=== PATIENT | male | born 1965 | race Caucasian/White ===

== ENCOUNTER 2022-02-12 09:26 | Inpatient (IN) ==
--- NOTE | 2022-02-12 09:48 | Emergency Department Note ---
History of Present Illness General Chief complaint: Laceration/Cut (Non-Suture) Stated complaint: PAIN IN L HAND, CUT Time Seen by Provider: 02/12/22 09:34 History of Present Illness Maximum Pain Intensity: 7 This 56 year old male with significant past medical history HTN presents to the ED today for evaluation of left index finger swelling and pain. Patient states about 3 weeks ago, he cut the PIP on the dorsal aspect of of the left index finger with a disc pad grinder. He states it bled a lot and he cleaned it with peroxide, and thought it was okay. He states he then bumped it on something a few days ago, noticed increased pain, swelling, and redness. He went to [place] emergency department last night, was given IV antibiotics, and was told they would like to have him admitted to be seen by orthopedics, have further imaging completed, and possibly surgery. The patient states he did not want to stay, because "the only thing they were going to do for me until the afternoon was give me antibiotics". He states he left and decided to come here today for "a second opinion". The patient denies any fever. No red streaking. He does not know what antibiotic they gave him. He is not diabetic. He states he did booster his tetanus vaccine last night. He has not seen orthopedics. He is not currently on oral antibiotics. Home Medications Medication Instructions Recorded Confirmed Type glyburide 2.5 mg tablet 2.5 mg PO QAM 02/12/22 02/12/22 History ibuprofen-diphenhydramine citrate 2 cap PO HS PRN 02/12/22 02/12/22 History 200 mg-38 mg tablet (Advil PM) lisinopril 20 mg tablet 20 mg PO QAM 02/12/22 02/12/22 History simvastatin 20 mg tablet 20 mg PO HS 02/12/22 02/12/22 History Allergies Allergy/AdvReac Type Severity Reaction Status Date / Time No Known Allergies Allergy Unverified 02/12/22 11:04 Past Med/Surg History Medical History Diabetes mellitus, type II HLD (hyperlipidemia) Hypertension Surgical History (Updated 02/12/22 @ 13:50 by Lolita Thompson PA-C) H/O rotator cuff surgery Family History (Updated 02/12/22 @ 13:50 by Lolita Thompson PA-C) Father Cancer skin cancer Other Hypertension Social History Smoking Status: Never smoker Hx Alcohol Use: Yes (Mixed drink twice a year) Hx Substance Use: No Preferred Language: Citizen Of [place] Feels Safe at Home: Yes Review of Systems A total of 10 systems reviewed and were otherwise negative Physical Exam Vital Signs Vital Signs - 24 hr 02/12/22 09:27 02/12/22 10:22 02/12/22 11:00 Temperature 36.3 C L Temperature Source Temporal Artery Scan Pulse Rate 75 Pulse Rate [Apical] 72 81 Pulse Rhythm [Apical] Regular Respiratory Rate 18 18 22 Blood Pressure 196/102 H Blood Pressure [Right Arm] 178/120 H 186/100 H Blood Pressure Mean 133 Blood Pressure Mean [Right Arm] 139 128 Blood Pressure Position Sitting Pulse Oximetry 95 93 96 Oxygen Delivery Method Room Air Room Air Room Air Sepsis Recent Fever Within 48 Hours No Sepsis New/Unexplained Change in Mental Status N/A Sepsis Action Taken by Nursing No Action Required 02/12/22 13:00 Temperature Temperature Source Pulse Rate Pulse Rate [Apical] 76 Pulse Rhythm [Apical] Respiratory Rate 22 Blood Pressure Blood Pressure [Right Arm] 154/89 H Blood Pressure Mean Blood Pressure Mean [Right Arm] 110 Blood Pressure Position Pulse Oximetry 95 Oxygen Delivery Method Room Air Sepsis Recent Fever Within 48 Hours Sepsis New/Unexplained Change in Mental Status Sepsis Action Taken by Nursing VITALS: Vitals are noted on the nurse's note and reviewed by myself. Pt. is hypertensive. He is afebrile, not tachycardic GENERAL: This is a 56 year old white male, in no acute distress, nondiaphoretic, well-developed well-nourished. SKIN: Erythema and edema surrounding the PIP of the left index finger extending proximally to cover the proximal phalanx. There is tenderness to palpation of this area. The skin was without rashes, erythema, edema, or bruising. There is no tenting of the skin. Capillary refill less than 2 seconds. HEAD: Normocephalic atraumatic. EYES: Conjunctivae without injection, sclerae without icterus. NOSE: Patent, turbinates without inflammation or discharge. No sinus tenderness. MOUTH: Mucous membranes moist. Tonsils are not enlarged. Pharynx without erythema or exudate. Uvula midline. Airway patent. Tongue does not deviate. NECK: Supple without nuchal rigidity. No lymphadenopathy. No JVD. HEART: Regular rate and rhythm without murmurs gallops or rubs. LUNGS: Clear to auscultation bilaterally without wheezes, rales or rhonchi. No retractions or accessory muscle use. ABDOMEN: Positive bowel sounds x 4. Soft, nontender, without masses or organomegaly. Oh sign negative. No guarding or rebound tenderness. MUSCULOSKELETAL: No muscle atrophy, erythema, or edema noted. Patient is unable to flex the left index finger due to the previously noted edema. There is tenderness to palpation of this area. Otherwise, full range of motion without joint tenderness in all extremities. Normal gait. Strength 5/5 throughout. NEURO: Patient was alert and oriented to person place and time. No focal neurological deficits. Course Course The patient was seen and evaluated as above. An order was placed for continuous cardiac monitoring. The monitor shows a normal sinus rhythm at a rate of 81 bpm. IV access obtained, labs drawn. Imaging performed and reviewed by myself and radiologist as noted. Labs reviewed by myself. Attempted to obtain records from [place] emergency department. I discussed the findings with the patient at bedside. Pt. again notes he does not have a history of diabetes. He notes he has been told by his PCP last month and the ED last night that his blood sugar was "good." Recommended admission due to hyperglycemia, new onset diabetes, obvious finger infection. I discussed the case with the corporate services manager. I discussed the case with [facility]. I spoke with Dr. Herman. He recommends IV antibiotics, placing the patient in an Ortho-Glass splint, splinting the hand, elevating the extremity and managing for soft tissue inflammation. He indicated they would be by to see the patient this afternoon [facility] Spoke with Lolita Thompson PA-C. She did agree to see the patient for admission. At this time, reviewed patient's medication list. Pharmacy had pulled glyburide from home med list. I questioned patient regarding this medication. Pt. now states he is on this medication and does have a history of Diabetes. The patient is questioning why he needs the splint. I advised him of my conversation with orthopedics. The patient was agreeable with the splint. I was able to obtain medical records from [facility] emergency department at this time. Upon review, the patient was given 2000 mg IV vancom ycin as well as 2000 mg IV ceftriaxone yesterday in the emergency department. I did consult with the ED pharmacist regarding vancomycin dosing, as it does not appear that the patient had been given a full loading dose. We did agree on vancomycin dosing to be initiated here at this time. Patient given 2,250 mg vancomycin here in the ED. [facility] management and care of this patient. Administered Medications Vancomycin HCl 2,250 mg/ (Sodium Chloride) 545 mls @ 200 mls/hr IV NOW ONE Stop: 02/12/22 15:42 Last Admin: 02/12/22 13:59 Dose: 200 mls/hr Documented by: [id number] Discontinued Medications Ceftriaxone Sodium (Rocephin) 2,000 mg in 70 mls @ 140 mls/hr IV NOW STA Stop: 02/12/22 12:28 Last Infusion: 02/12/22 14:07 Dose: 0 mls/hr Documented by: [id number] Admin: 02/12/22 12:50 Dose: 140 mls/hr Documented by: [id number] Sodium Chloride (Nss 1000ml) 1,000 mls @ 999 mls/hr IV .Q1H1M ONE Stop: 02/12/22 13:00 Last Infusion: 02/12/22 14:07 Dose: 0 mls/hr Documented by: [id number] Admin: 02/12/22 12:49 Dose: 999 mls/hr Documented by: [id number] Insulin Human Regular (Novolin-R Insulin Per Unit Charge) 10 units SC NOW STA Stop: 02/12/22 12:52 Last Admin: 02/12/22 13:51 Dose: Not Given Documented by: [id number] Insulin Human Regular (Novolin-R Insulin Per Unit Charge) 10 units IV NOW STA Stop: 02/12/22 13:23 Last Admin: 02/12/22 13:55 Dose: 10 units Documented by: [id number] Cosigned by: [id number] Medical Decision Making Differential Diagnosis Cellulitis, abscess, tenosynovitis, MRSA infection, DVT, necrotizing fasciitis, dermatitis, drug eruption, allergic reaction, as well as other pathologies. Medical Records Attestation: I reviewed the patient's medical records. [facility] emergency department records from last night were obt ained and reviewed. Home Medications Current Medication List: was personally reviewed by me Laboratory Data No leukocytosis, anemia, thrombocytopenia. Renal, hepatic function, and electrolytes without significant abnormality. Blood glucose significantly elevated at 428. Inflammatory markers elevated, ESR 28, CRP 4.32. Lactic acid 1.6. Procalcitonin negative Result diagrams: 02/12/22 10:05 02/12/22 10:05 Lab Results 02/12/22 02/12/22 02/12/22 Range/Units 10:05 10:05 10:05 WBC 7.45 (4.8-10.8) K/uL RBC 5.34 (4.7-6.1) M/uL Hgb 16.1 (14.0-18.0) g/dL Hct 44.7 (42-52) % MCV 83.7 (80-100) fL MCH 30.1 (25-34) pg MCHC 36.0 (32-36) g/dL RDW Std Deviation 37.5 (36.4-46.3) fL RDW Coeff of Kanwal 12.4 (11.5-14.5) % Plt Count 180 (130-400) K/uL MPV 9.9 (7.4-10.4) fL Immature Gran % (Auto) 0.3 % Neut % (Auto) 64.8 % Lymph % (Auto) 25.1 % Arroyo % (Auto) 6.7 % Eos % (Auto) 2.7 % Baso % (Auto) 0.4 % Neut # (Auto) 4.83 (1.4-6.5) K/uL Lymph # (Auto) 1.87 (1.2-3.4) K/uL Arroyo # (Auto) 0.50 (0.11-0.59) K/uL Eos # (Auto) 0.20 (0-0.5) K/uL Baso # (Auto) 0.03 (0-0.2) K/uL Immature Gran # (Auto) 0.02 (0.00-0.02) K/uL ESR 28 H (0-20) mm/hr Sodium 132 L (136-145) mmol/L Potassium 4.2 (3.5-5.1) mmol/L Chloride 100 (98-107) mmol/L Carbon Dioxide 23 (21-32) mmol/L Anion Gap 9 (3-11) BUN 18 (6-23) mg/dl Creatinine 1.01 (0.6-1.4) mg/dl Est Cr Clr Drug Dosing 93.5 ml/min Est GFR ( Amer) 95.3 ml/min Est GFR (Non-Af Amer) 82.2 ml/min BUN/Creatinine Ratio 17.8 (10-20) Glucose 428 H* (70-99(Fasting)) mg/dl POC Glucose (70-99) mg/dl Lactate (0.4-2.0) mmol/L Calcium 9.4 (8.5-10.1) mg/dl Total Bilirubin 0.8 (0.2-1.0) mg/dl AST 19 (13-39) U/L ALT 26 (7-52) U/L Alkaline Phosphatase 91 (34-104) U/L C-Reactive Protein 4.32 H (0-0.5) mg/dl Total Protein 7.4 (6.0-8.3) gm/dl Albumin 4.3 (3.4-5.0) gm/dl Globulin 3.1 (2.5-4.0) gm/dl Albumin/Globulin Ratio 1.4 (0.9-2) Procalcitonin (0-0.5) ng/ml SARS-CoV-2, RNA, NAAT (NEGATIVE) 02/12/22 02/12/22 02/12/22 Range/Units 10:05 10:05 11:54 WBC (4.8-10.8) K/uL RBC (4.7-6.1) M/uL Hgb (14.0-18.0) g/dL Hct (42-52) % MCV (80-100) fL MCH (25-34) pg MCHC (32-36) g/dL RDW Std Deviation (36.4-46.3) fL RDW Coeff of Kanwal (11.5-14.5) % Plt Count (130-400) K/uL MPV (7.4-10.4) fL Immature Gran % (Auto) % Neut % (Auto) % Lymph % (Auto) % Arroyo % (Auto) % Eos % (Auto) % Baso % (Auto) % Neut # (Auto) (1.4-6.5) K/uL Lymph # (Auto) (1.2-3.4) K/uL Arroyo # (Auto) (0.11-0.59) K/uL Eos # (Auto) (0-0.5) K/uL Baso # (Auto) (0-0.2) K/uL Immature Gran # (Auto) (0.00-0.02) K/uL ESR (0-20) mm/hr Sodium (136-145) mmol/L Potassium (3.5-5.1) mmol/L Chloride (98-107) mmol/L Carbon Dioxide (21-32) mmol/L Anion Gap (3-11) BUN (6-23) mg/dl Creatinine (0.6-1.4) mg/dl Est Cr Clr Drug Dosing ml/min Est GFR ( Amer) ml/min Est GFR (Non-Af Amer) ml/min BUN/Creatinine Ratio (10-20) Glucose (70-99(Fasting)) mg/dl POC Glucose 317 H* (70-99) mg/dl Lactate 1.6 (0.4-2.0) mmol/L Calcium (8.5-10.1) mg/dl Total Bilirubin (0.2-1.0) mg/dl AST (13-39) U/L ALT (7-52) U/L Alkaline Phosphatase (34-104) U/L C-Reactive Protein (0-0.5) mg/dl Total Protein (6.0-8.3) gm/dl Albumin (3.4-5.0) gm/dl Globulin (2.5-4.0) gm/dl Albumin/Globulin Ratio (0.9-2) Procalcitonin < 0.05 (0-0.5) ng/ml SARS-CoV-2, RNA, NAAT (NEGATIVE) 02/12/22 Range/Units 11:55 WBC (4.8-10.8) K/uL RBC (4.7-6.1) M/uL Hgb (14.0-18.0) g/dL Hct (42-52) % MCV (80-100) fL MCH (25-34) pg MCHC (32-36) g/dL RDW Std Deviation (36.4-46.3) fL RDW Coeff of Kanwal (11.5-14.5) % Plt Count (130-400) K/uL MPV (7.4-10.4) fL Immature Gran % (Auto) % Neut % (Auto) % Lymph % (Auto) % Arroyo % (Auto) % Eos % (Auto) % Baso % (Auto) % Neut # (Auto) (1.4-6.5) K/uL Lymph # (Auto) (1.2-3.4) K/uL Arroyo # (Auto) (0.11-0.59) K/uL Eos # (Auto) (0-0.5) K/uL Baso # (Auto) (0-0.2) K/uL Immature Gran # (Auto) (0.00-0.02) K/uL ESR (0-20) mm/hr Sodium (136-145) mmol/L Potassium (3.5-5.1) mmol/L Chloride (98-107) mmol/L Carbon Dioxide (21-32) mmol/L Anion Gap (3-11) BUN (6-23) mg/dl Creatinine (0.6-1.4) mg/dl Est Cr Clr Drug Dosing ml/min Est GFR ( Amer) ml/min Est GFR (Non-Af Amer) ml/min BUN/Creatinine Ratio (10-20) Glucose (70-99(Fasting)) mg/dl POC Glucose (70-99) mg/dl Lactate (0.4-2.0) mmol/L Calcium (8.5-10.1) mg/dl Total Bilirubin (0.2-1.0) mg/dl AST (13-39) U/L ALT (7-52) U/L Alkaline Phosphatase (34-104) U/L C-Reactive Protein (0-0.5) mg/dl Total Protein (6.0-8.3) gm/dl Albumin (3.4-5.0) gm/dl Globulin (2.5-4.0) gm/dl Albumin/Globulin Ratio (0.9-2) Procalcitonin (0-0.5) ng/ml SARS-CoV-2, RNA, NAAT NEGATIVE (NEGATIVE) Imaging Data Radiologist's Impression: Hand X-Ray 02/12/22 09:40 XR hand LT min 3V routine CLINICAL HISTORY: pain, swelling, redness, PIP wound. Left finger and hand swelling. COMPARISON STUDY: None. FINDINGS: No fracture or dislocation within the left hand. 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 Soft tissue swelling within the left index finger most pronounced proximally. No radiopaque foreign bodies. No evidence for osteomyelitis. IMPRESSION: Soft tissue swelling within the left index finger. No underlying bony abnormality. ACT 112: Negative or not required by law. Electronically signed by: Dario Torres M.D. 02/12/2022 10:23 AM Blood Pressure Blood Pressure Findings: Elevated blood pressure MDM Narrative This 56-year-old male patient presents to the emergency department today for evaluation of left index finger pain, swelling, and redness. The patient does appear to have an infection of the proximal aspect of the left index finger. Patient's stable tenosynovitis. Examination is difficult due to the diffuse swelling in the area of the digit, causing a difficult for the patient to move the entire digit. Unclear tenosynovitis versus cellulitis. The patient does have uncontrolled type 2 diabetes. Inflammatory markers are elevated. Given the findings and the patient's history, I do recommend inpatient treatment for IV antibiotics, orthopedic consult. The patient was started on IV vancomycin and Rocephin. Please see hospitalist and orthopedics documentation regarding ongoing management and care of this patient. The chart was completed utilizing [employer] Speech voice recognition software. Grammatical errors, random word insertions, pronoun errors, and incomplete sentences are an occasional consequence of this system due to software limitations, ambient noise, and hardware issues. Any formal questions or concerns about the content, text, or information contained within the body of this dictation should be directly addressed to the provider for clarification. Impression & Plan Cellulitis of finger of left hand, Hyperglycemia due to type 2 diabetes mellitus Discharge Plan Visit Data Chief Complaint: Laceration/Cut (Non-Suture) Stated Complaint: PAIN IN L HAND, CUT ED Provider: Mildred Tate ED Midlevel Provider: Brittany Hamilton Discharge Problem: Cellulitis of finger of left hand, Hyperglycemia due to type 2 diabetes mellitus Patient Disposition: Admitted As Inpatient Forms Stand Alone Forms: [facility] [place] Prescriptions Prescriptions: No Action glyburide 2.5 mg tablet 2.5 mg PO QAM RF: 0 lisinopril 20 mg tablet 20 mg PO QAM RF: 0 simvastatin 20 mg tablet 20 mg PO HS RF: 0 Advil PM 200-38 mg Tablet 2 cap PO HS PRN (Reason: Pain) RF: 0 Referrals Referrals: PCP,NO [Physician] -
--- NOTE | 2022-02-12 10:24 | XRay Report ---
XR hand LT min 3V routine CLINICAL HISTORY: pain, swelling, redness, PIP wound. Left finger and hand swelling. COMPARISON STUDY: None. FINDINGS: No fracture or dislocation within the left hand. There is mild osteoarthritis within the DI P and PIP joints. Soft tissue swelling within the left index finger most pronounced proximally. No ra diopaque foreign bodies. No evidence for osteomyelitis. IMPRESSION: Soft tissue swelling within the left index finger. No underlying bony abnormality. ACT 112: Negative or not required by law. Electronically signed by: Dario Torres M.D. 02/12/2022 10:23 AM
[2022-02-12 10:26] LABS: Basophils # (auto) 0.03 K/uL (0-0.2); Basophils % (auto) 0.4 %; Eosinophils % (auto) 2.7 %; Hematocrit (blood only) 44.7 % (42-52); Hemoglobin 16.1 g/dL (14.0-18.0); Immature Granulocytes # (auto) 0.02 K/uL (0.00-0.02); Immature Granulocytes % (auto) 0.3 %; Lymphocytes # (auto) 1.87 K/uL (1.2-3.4); Lymphocytes % (auto) 25.1 %; Mean Corpuscular Hemoglobin 30.1 pg (25-34); Mean Corpuscular Volume 83.7 fL (80-100); Mean Platelet Volume 9.9 fL (7.4-10.4); Monocytes % (auto) 6.7 %; Neutrophils # (auto) 4.83 K/uL (1.4-6.5); Neutrophils % (auto) 64.8 %; Platelet Count 180 K/uL (130-400); RDW Coefficient of Variation 12.4 % (11.5-14.5); RDW Standard Deviation 37.5 fL (36.4-46.3); Red Blood Count 5.34 M/uL (4.7-6.1); White Blood Count 7.45 K/uL (4.8-10.8)
[2022-02-12 11:16] LABS: Albumin Globulin Ratio 1.4 (0.9-2); Albumin Level 4.3 gm/dl (3.4-5.0); BUN Creatinine Ratio 17.8 (10-20); Bilirubin,Total 0.8 mg/dl (0.2-1.0); C Reactive Protein 4.32 mg/dl (0-0.5); Calcium 9.4 mg/dl (8.5-10.1); Creatinine Clr Calc Pharmacy 93.5 ml/min; Est GFR (African American) 95.3 ml/min; Est GFR (Non-African American) 82.2 ml/min; Globulin 3.1 gm/dl (2.5-4.0); Potassium 4.2 mmol/L (3.5-5.1); Total Protein 7.4 gm/dl (6.0-8.3)
[2022-02-12] MEDS ORDERED: cefTRIAXone SODIUM 2,000 MG/70 ML BAG IV STA (11:59)
[2022-02-12] MEDS ORDERED: SODIUM CHLORIDE 0.9% 1000ML 1,000 ML IV ONE (12:00)
[2022-02-12] MEDS ORDERED: NovoLIN-R INSULIN PER UNIT CHARGE SC STA (12:51)
--- NOTE | 2022-02-12 12:51 | History & Physical Report ---
Date of Service February 12, 2022 Assessment & Plan (1) Cellulitis of finger of left hand: Plan: LEFT INDEX FINGER Patient is 56-year-old male with PMH HTN, HLD, DM II presents to ER with complaint of left finger swelling, erythema and edema x 1 week. 3 weeks ago laceration from a grinder set up operator gear tool to dorsal aspect of L index finger over PIP joint. 1 week ago tried home aspiration with needle reporting purulent drainage since. Was in [place] ER yesterday and received Rocephin, Vancomycin and admission was recommended however patient denied Today in ER patient afebrile, patient hypertensive other vital stable. No leukocytosis. ESR: 28, CRP: 4.3, lactate and procalcitonin WNL Left hand x-ray: No visible foreign bodies, no osteomyelitis noted R/O tenosynovitis In ER given L NSS, Rocephin, vancomycin Blood cultures pending Zosyn, vancomycin Gentle IVF Tylenol, oxycodone as needed pain Ortho consult Will hold on further imaging pending ortho recommendations NPO midnight CBC, BMP in a.m. (2) Hyperglycemia due to type 2 diabetes mellitus: Plan: In ER glucose 428 down to 317 UA pending Hold home glyburide. Patient reports was on metformin however after several days of taking developed arthralgias so was discontinued Basal bolus insulin per protocol Glycemic pharmacy consult A1c in a.m. (3) Hypertension: Plan: Patient initially quite hypertensive in ER with BP 196/102 down to 154/89 Continue home lisinopril Add amlodipine Hydralazine p.o. as needed HTN Monitor (4) HLD (hyperlipidemia): Plan: Continue simvastatin DVT Prophylaxis SCDs Follows with Dr Gagnon in [place], [place] for routine care Pt was seen and care coordinated with Dr Deng. See addendum History of Present Illness Chief Complaint: Left finger swelling Primary Care Provider: Alvarez Gagnon MD Patient is 56-year-old male with PMH HTN, HLD, DM II presents to ER with complaint of left finger swelling. He reports 3 weeks ago he cut his dorsal aspect of left index finger over PIP joint with a grinder set up operator gear tool causing laceration. He reports he cleansed the area with soap and water and then peroxide. He states that after injury we was able to flex and extend the digit. Reports approximately one week ago bumped finger and since has noted increased swelling and redness and discomfort. He states that stuck a needle into finger and yellow pus drained out. He reports continued yellow drainage from finger. Has been unable to fully flex the left index finger. Reports was seen at [place] ER yesterday. ER records reviewed and was given Rocephin and vancomycin. It was recommended he be admitted to hospital and see orthopedics however patient denied and presented here today. Denies known history of MRSA. Reports had AM me ds today. Denies fever/chills, diaphoresis, N/V/D/C, PEREZ, dizziness, syncope, vision changes, neck pain, CP, SOB, orthopnea, palpitations, cough, sore throat, choking, otalgia, rhinorrhea, abdominal pain, paresthesias, weakness, extremity weakness, extremity edema, other skin rashes, urinary symptoms. Allergies Allergy/AdvReac Type Severity Reaction Status Date / Time No Known Allergies Allergy Unverified 02/12/22 11:04 Home Medications Medication Instructions Recorded Confirmed Type glyburide 2.5 mg tablet 2.5 mg PO QAM 02/12/22 02/12/22 History ibuprofen-diphenhydramine citrate 2 cap PO HS PRN 02/12/22 02/12/22 History 200 mg-38 mg tablet (Advil PM) lisinopril 20 mg tablet 20 mg PO QAM 02/12/22 02/12/22 History simvastatin 20 mg tablet 20 mg PO HS 02/12/22 02/12/22 History Past Med/Surg History Medical History Diabetes mellitus, type II HLD (hyperlipidemia) Hypertension Surgical History H/O rotator cuff surgery Family History Father Cancer skin cancer Other Hypertension Social History Smoking Status: Never smoker Hx Alcohol Use: Yes (Mixed drink twice a year) Hx Substance Use: No Preferred Language: Belgian Feels Safe at Home: Yes Review of Systems Review of Systems: All systems reviewed & are unremarkable except as noted in HPI & below Physical Exam Physical Exam: General: no distress, obese Head: normocephalic, atraumatic Eyes: conjunctiva non-injected, anicteric ENT: normal inspection external ears, nose, mucous membranes moist Neck: supple, trachea midline Lungs: clear, no respiratory distress, no wheezing/rhonchi/rales CV: RRR, no murmur, no pretibial edema Abd: normal BS, soft, non-tender Ext: no cyanosis, no calf tenderness; LUE: +splint to left wrist to fingers unable to fully examine Neuro: A&O x 3, no focal deficits noted, normal affect Skin: warm, dry Results & Data Results & Data ([facility]) Vital Signs (Past 12 Hours) Vital Signs Temp Pulse Pulse Resp BP BP Pulse Ox 02/12/22 11:00 81 22 186/100 H 96 02/12/22 10:22 72 18 178/120 H 93 02/12/22 09:27 36.3 C L 75 18 196/102 H 95 Laboratory Results Short CBC 02/12/22 Range/Units 10:05 WBC 7.45 (4.8-10.8) K/uL Hgb 16.1 (14.0-18.0) g/dL Hct 44.7 (42-52) % Plt Count 180 (130-400) K/uL BMP 02/12/22 10:05 Sodium 132 L Potassium 4.2 Chloride 100 Carbon Dioxide 23 BUN 18 Creatinine 1.01 Glucose 428 H* Calcium 9.4 Liver Function 02/12/22 Range/Units 10:05 Total Bilirubin 0.8 (0.2-1.0) mg/dl AST 19 (13-39) U/L ALT 26 (7-52) U/L Alkaline Phosphatase 91 (34-104) U/L Albumin 4.3 (3.4-5.0) gm/dl Diagnostic Findings Hand X-Ray 02/12/22 09:40 XR hand LT min 3V routine CLINICAL HISTORY: pain, swelling, redness, PIP wound. Left finger and hand swelling. COMPARISON STUDY: None. FINDINGS: No fracture or dislocation within the left hand. 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 Soft tissue swelling within the left index finger most pronounced proximally. No radiopaque foreign bodies. No evidence for osteomyelitis. IMPRESSION: Soft tissue swelling within the left index finger. No underlying bony abnormality. ACT 112: Negative or not required by law. Electronically signed by: Dario Torres M.D. 02/12/2022 10:23 AM Supervising Physician Co-Signing Physician Notes Patient is a 56-year-old male with history of diabetes mellitus, hypertension and other medical problems presents with history of left finger swelling associated with pain, discharge. Patient admits to have a cut off his finger 3 weeks ago and about 1 week ago had trauma to the same area resulting in wo rsening pain, swelling and redness. Patient was evaluated in [place] ER yesterday and was advised to be admitted for IV antibiotics and orthopedic evaluation but patient refused. Please review HPI for complete details of presentation. On exam patient is obese, no apparent distress, normocephalic atraumatic, EOMI, normal breath sounds, clear to auscultation, S1-S2, no murmur, no pedal edema, abdomen soft, nontender, normal bowel sounds, alert, awake, oriented, grossly no focal deficits, left and in splint. Blood work and imaging studies reviewed. Normal procalcitonin. CRP 4.32. Blood cultures pending. Patient is admitted for management of left hand cellulitis. Cannot rule out abscess. Started on broad-spectrum antibiotics Vanco, Zosyn. Gentle IV fluids. Orthopedics consulted. Pain control. Wound care. Agree with starting on insulin for diabetes management. Update HbA1c. Agree with adding amlodipine at continue lisinopril, hydralazine as needed to help with hypertensive urgency. May need echo eventually to evaluate left ventricular hypertrophy. I personally reviewed the record. Patient is interviewed and examined at bedside. Patient's care is coordinated with Lolita Thompson PA-C. Please refer to the documentation above for details of patient's presentation and for discussion of other issues. (1) Hyperglycemia due to type 2 diabetes mellitus Diabetes mellitus buttermaker insulin use: without buttermaker use Qualified Code(s): E11.65 - Type 2 diabetes mellitus with hyperglycemia
[2022-02-12] MEDS ORDERED: VANCOMYCIN HCL 2,250 MG in SODIUM CHLORIDE 0.9% 500 ML IV ONE (12:59)
[2022-02-12] MEDS ORDERED: VANCOMYCIN CONSULT ACTIVE PRN ×2 (12:59→20:22)
[2022-02-12] MEDS ORDERED: NovoLIN-R INSULIN PER UNIT CHARGE IV STA (13:22)
[2022-02-12] MEDS ORDERED: CONSULT PHARMACY STA (13:40)
[2022-02-12] MEDS ORDERED: GLUCAGON FOR INJ 1 MG VIAL SQ PRN (16:16)
[2022-02-12] MEDS ORDERED: ONDANSETRON INJ 2 MG/ML 2 ML VIAL IV PRN (16:16)
[2022-02-12] MEDS ORDERED: GLUCOSE 10 TABS/TUBE PO PRN (16:16)
[2022-02-12] MEDS ORDERED: GLUCOSE 40% GEL 15 GM TUBE PO PRN (16:16)
[2022-02-12] MEDS ORDERED: SODIUM CHLORIDE 0.9% 1000ML 1,000 ML IV SCH (16:16)
[2022-02-12] MEDS ORDERED: hydrALAZINE 10 MG TAB PO PRN (16:16)
[2022-02-12] MEDS ORDERED: DEXTROSE 50% 50 ML SYRINGE IV PRN (16:16)
[2022-02-12] MEDS ORDERED: PHARMACY GLYCEMIC MGMT CONSULT PRN (16:16)
[2022-02-12] MEDS ORDERED: CARBOHYDRATES FOR HYPOGLYCEMIA PO PRN (16:16)
[2022-02-12] MEDS ORDERED: amLODIPine BESYLATE 5 MG TAB PO SCH (16:16)
[2022-02-12] MEDS ORDERED: POLYETHYLENE (MIRALAX) 17 GM PACK PO PRN (16:16)
[2022-02-12] MEDS ORDERED: oxyCODONE HCL IR 5 MG TAB (IMMEDIATE RELEASE) PO PRN (16:16)
[2022-02-12] MEDS ORDERED: INSULIN GLARGINE SOLOSTAR 100 UNITS/ML 3 ML PEN SC ONE (17:53)
[2022-02-12] MEDS ORDERED: PIPERACILLIN/TAZOBACTAM 4.5 GM in DEXTROSE 5% 100 ML IV ONE (18:00)
[2022-02-12] MEDS: INSULIN ASPART PER UNIT SC SCH ×2 (19:07→20:15)
[2022-02-12] MEDS ORDERED: PIPERACILL/TAZOBAC CONSULT ACTIVE PRN (20:21)
--- NOTE | 2022-02-12 20:40 | Orthopedic Consultation ---
Date of Service February 12, 2022 Assessment & Plan (1) Septic arthritis of interphalangeal joint of finger of left hand: (2) Cellulitis of finger of left hand: Presentation consistent with subacute septic arthrosis of the left index finger proximal interphalangeal joint with surrounding mild cellulitis. I recommended to the patient that he undergo incision, irrigation debridement to expedite and give his best chance of eradicating the infection. Alternatives to surgery would be prolonged IV antibiotics, but I am concerned about the degree of purulence, joint contracture, and chronicity here. Recommend surgery first thing in AM. He should be n.p.o. at midnight. We discussed the risks include, but are not limited to, persistent infection, need for repeat or revision surgery, chronic pain syndromes, arthrofibrosis of the IP joint, nerve or vessel injury, and complications related anesthesia. He asked appropriate questions, demonstrated good understanding, and wanted to proceed with surgery. Informed consent was documented in the emergency room tonight. N.p.o. at midnight Continue empiric parenteral antibiotics., Will obtain deep cultures tomorrow Fingers provisionally splinted with the hand for soft tissue rest. This can be removed for exams and adjusted by the patient. Anticipate 1-2 days inpatient stay until transition to oral antibiotic regimen. Appreciate hospitalist management of his hypertension and hyperglycemia which will expedite his recovery. History of Present Illness Reason for Consultation: Left index finger infection Requesting Physician: . 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 The patient noted that he cut it open on a hot metal car operator about 3 weeks ago. He said he was aggressive about washing it with soap and water treating with peroxide. He said it was doing well up until about 3 to 4 days ago when he bumped it. He since had increased pain and loss of motion and that finger. He says at some point in the process he was draining pus after sterilizing a needle and lacerating it. Is been draining pus consistently over last 2 days, prompting a visit to [place] [facility]. They offered admission and orthopedic consultation the next day for potential surgery. He left due to delays in care and wanting a second opinion. He denies any fevers or chills. Reports got lots of projects to work on and does not want to stay long. No prior history of finger injuries or infections. He was admitted to the hospitalist team due to hyperglycemia and hypertension. Allergies Allergy/AdvReac Type Severity Reaction Status Date / Time No Known Allergies Allergy Unverified 02/12/22 11:04 Home Medications Medication Instructions Recorded Confirmed Type glyburide 2.5 mg tablet 2.5 mg PO QAM 02/12/22 02/12/22 History ibuprofen-diphenhydramine citrate 2 cap PO HS PRN 02/12/22 02/12/22 History 200 mg-38 mg tablet (Advil PM) lisinopril 20 mg tablet 20 mg PO QAM 02/12/22 02/12/22 History simvastatin 20 mg tablet 20 mg PO HS 02/12/22 02/12/22 History Past Med/Surg History Medical History Diabetes mellitus, type II HLD (hyperlipidemia) Hypertension Surgical History H/O rotator cuff surgery Family History Father Cancer skin cancer Other Hypertension Social History Smoking Status: Never smoker Hx Alcohol Use: Yes (Mixed drink twice a year) Hx Substance Use: No Preferred Language: Serbian Facility Planner Required: Yes Current Living Situation: Spouse Feels Safe at Home: Yes Safety Concerns: Feels Safe At This Time Review of Systems All systems reviewed & are unremarkable except as noted in HPI & below. Physical Exam Left hand: There is isolated swelling and erythema circumferentially to the index finger proximal to phalangeal joint. There is a punctate wound on the dorsal radial surface of the PIP joint. It is crusted purulence. There is no expressible drainage with palpation, but there is exquisite tenderness. Very minimal motion due to pain to the PIP joint. DIP motion seems to be preserved. MP motion seems to be preserved and pain-free. No tenderness along the flexor tendon sheath. No antecubital or axillary lymphadenopathy. Constitutional well developed and well nourished; no acute distress and not intoxicated appearing ENMT external ear and nose normal, oropharynx normal Respiratory normal respiratory effort; no respiratory distress Cardiovascular Extremities: normal capillary refill; no edema Skin no rashes, warm and dry Psychiatric A+Ox3, euthymic affect Results & Data Results & Data Laboratory Results H & H 02/12/22 Range/Units 10:05 Hgb 16.1 (14.0-18.0) g/dL Hct 44.7 (42-52) % Laboratory Tests 02/12/22 02/12/22 10:05 10:05 ESR 28 H Glucose 428 H* C-Reactive Protein 4.32 H Diagnostic Findings Radiographs of left ankle AP lateral oblique views. These demonstrate focal soft tissue swelling to the index finger PIP joint with diffuse tapering throughout the digit. No foreign bodies. No advanced arthrosis of the PIP or DIP joints. PG Care Time/CCT Total # of Minutes Spent Total Time Spent with Patient: Total time spent is greater than 50% in coordination of care (as documented) at patient's floor/unit and/or counseling patient: Coding Level of Care Code 95010 Inpt Consult Level 4 (56 - DECISION FOR SURGERY) Diagnoses Septic arthritis of interphalangeal joint of finger of left hand M00.9 Cellulitis of finger of left hand L03.012
[2022-02-12] MEDS: SIMVASTATIN 20 MG TAB PO SCH (21:00)
[2022-02-12 22:21] LABS: Appearance Urine Clear (Clear); Bilirubin Urine Negative (Negative); Blood Urine Negative (Negative); Color Urine Yellow; Glucose Urine UA 3+ (Negative); Ketones Urine Negative (Negative); Leukocyte Esterase Urine Negative (Negative); Nitrite Urine Negative (Negative); Protein Urine Negative (Negative); Specific Gravity Urine 1.022 (1.000-1.030); Urobilinogen Urine Negative (Negative); pH Urine 5.5 (4.5-7.5)
[2022-02-12] MEDS: ACETAMINOPHEN 325 MG TAB PO PRN (22:43)
[2022-02-12] MEDS: PIPERACILLIN/TAZOBACTAM 4.5 GM in DEXTROSE 5% 100 ML IV SCH (23:03)
[2022-02-13] MEDS: VANCOMYCIN HCL 1,250 MG in SODIUM CHLORIDE 0.9% 250 ML IV SCH ×2 (03:00→15:52)
[2022-02-13] MEDS ORDERED: INSULIN ASPART PER UNIT SC ONE (03:00)
[2022-02-13] MEDS ORDERED: INSULIN GLARGINE SOLOSTAR 100 UNITS/ML 3 ML PEN SC ONE (08:00)
--- NOTE | 2022-02-13 08:16 | Anesthesiology Consultation ---
Date of Service February 13, 2022 Assessment & Plan (1) Encounter for pre-operative examination: Chart Review Chart Review: Acceptable Risk for Surgery History Surgery Operation Date: 02/13/22 10:30 Proposed Procedures p Incision and Drainage Left Index Finger(Left) - Modesto Herman MD Height/Weight Height: 5 ft 7 in Weight: 107.757 kg Allergies Allergy/AdvReac Type Severity Reaction Status Date / Time No Known Allergies Allergy Unverified 02/12/22 11:04 Medications Home Medications Medication Instructions Recorded Confirmed Last Taken glyburide 2.5 mg tablet 2.5 mg PO QAM 02/12/22 02/12/22 02/12/22 ibuprofen-diphenhydramine citrate 2 cap PO HS PRN 02/12/22 02/12/22 02/11/22 22:00 200 mg-38 mg tablet (Advil PM) lisinopril 20 mg tablet 20 mg PO QAM 02/12/22 02/12/22 02/12/22 simvastatin 20 mg tablet 20 mg PO HS 02/12/22 02/12/22 02/11/22 Active Medications Generic Name Dose Route Start Last Admin Trade Name Freq PRN Reason Stop Dose Admin Acetaminophen 650 mg 02/12/22 16:16 02/12/22 22:43 Acetaminophen 325 Mg Tab PO 03/14/22 16:15 650 mg Q4H PRN Administration Pain or Fever Amlodipine Besylate 2.5 mg 02/12/22 16:16 02/12/22 19:07 Amlodipine Besylate 5 Mg Tab PO 03/14/22 16:15 2.5 mg QAM CHERELLE Administration Piperacillin Sod/Tazobactam 120 mls @ 30 mls/hr 02/13/22 00:00 02/13/22 03:03 Sod 4.5 gm/ Dextrose IV 02/20/22 00:00 Infused Q8H CHERELLE Infusion Protocol Vancomycin HCl 1,250 mg/ 275 mls @ 200 mls/hr 02/13/22 02:00 02/13/22 04:23 Sodium Chloride IV 02/20/22 01:59 Infused Q12H CHERELLE Infusion Insulin Aspart 0 units 02/12/22 17:00 02/12/22 20:15 Insulin Aspart Per Unit SC 03/14/22 16:59 11 units ACHS CHERELLE Administration Simvastatin 20 mg 02/12/22 21:00 02/12/22 21:00 Simvastatin 20 Mg Tab PO 03/14/22 20:59 20 mg HS CHERELLE Administration Past Medical History Medical History Diabetes mellitus, type II HLD (hyperlipidemia) Hypertension Past Family History Family History Father Cancer skin cancer Other Hypertension Past Surgical History Surgical History H/O rotator cuff surgery Social History Smoking Status: Never smoker Hx Alcohol Use: Yes (Mixed drink twice a year) Hx Substance Use: No Physical Exam Vital Signs Last Vital Signs Temp 36.6 C 02/13/22 07:25 Pulse 59 L 02/13/22 07:28 Resp 18 02/13/22 07:25 BP 178/100 H 02/13/22 07:25 Pulse Ox 93 02/13/22 07:25 Testing Laboratory Results 02/12/22 10:05 02/12/22 10:05 Urine Color Yellow 02/12/22 Unknown Urine Appearance Clear (Clear) 02/12/22 Unknown Urine pH 5.5 (4.5-7.5) 02/12/22 Unknown Ur Specific [place] 1.022 (1.000-1.030) 02/12/22 Unknown Urine Protein Negative (Negative) 02/12/22 Unknown Urine Glucose (UA) 3+ (Negative) H 02/12/22 Unknown Urine Ketones Negative (Negative) 02/12/22 Unknown Urine Nitrite Negative (Negative) 02/12/22 Unknown Ur Leukocyte Esterase Negative (Negative) 02/12/22 Unknown 02/13/22 02/13/22 07:23 03:34 POC Glucose 256 H 320 H*
[2022-02-13] MEDS: lisinopril 20 MG TAB PO SCH (08:24)
[2022-02-13] MEDS: INSULIN ASPART PER UNIT SC SCH ×4 (08:32→20:51)
[2022-02-13] MEDS: PIPERACILLIN/TAZOBACTAM 4.5 GM in DEXTROSE 5% 100 ML IV SCH ×3 (08:33→23:11)
[2022-02-13] MEDS ORDERED: PHARMACY GLYCEMIC MGMT CONSULT PRN (08:51)
[2022-02-13 09:42] LABS: Hematocrit (blood only) 45.2 % (42-52); Hemoglobin 15.9 g/dL (14.0-18.0); Mean Corpuscular Hemoglobin 29.7 pg (25-34); Mean Corpuscular Hgb Conc 35.2 g/dL (32-36); Mean Corpuscular Volume 84.3 fL (80-100); Mean Platelet Volume 9.7 fL (7.4-10.4); Platelet Count 173 K/uL (130-400); RDW Coefficient of Variation 12.5 % (11.5-14.5); Red Blood Count 5.36 M/uL (4.7-6.1); White Blood Count 6.58 K/uL (4.8-10.8)
[2022-02-13] MEDS ORDERED: PROPOFOL IV EMULSION 10 MG/ML 20 ML VIAL IV ONE ×3 (09:47→09:48)
[2022-02-13] MEDS ORDERED: MIDAZOLAM HCL 1 MG/ML 2ML VIAL ONE (09:48)
[2022-02-13] MEDS ORDERED: LIDOCAINE 2% 2 ML VIAL/AMP(20MG/ML) INFIL ONE (09:48)
[2022-02-13] MEDS ORDERED: fentaNYL citrate 100 MCG/2 ML VIAL ONE ×2 (09:48→10:56)
[2022-02-13 10:06] LABS: BUN Creatinine Ratio 15.5 (10-20); Calcium 9.1 mg/dl (8.5-10.1); Creatinine Clr Calc Pharmacy 98.4 ml/min; Est GFR (Non-African American) 86.3 ml/min
[2022-02-13] MEDS ORDERED: ATROPINE SULFATE 0.1 MG/ML 10ML SYR IV PRN (10:14)
[2022-02-13] MEDS ORDERED: LABETALOL HCL IV 5 MG/ML 20ML IV PRN (10:14)
[2022-02-13] MEDS ORDERED: KETOROLAC 30 MG/ML VIAL IV PRN (10:14)
[2022-02-13] MEDS ORDERED: fentaNYL citrate 100 MCG/2 ML VIAL IV PRN (10:14)
[2022-02-13] MEDS ORDERED: ONDANSETRON INJ 2 MG/ML 2 ML VIAL IV PRN (10:14)
--- NOTE | 2022-02-13 10:25 | History & Physical Bridge Note ---
Date of Service February 13, 2022 History & Physical Bridge Note I have examined the patient, reviewed the History & Physical and in the interval since the performance of the History & Physical I have noted the following changes of clinical significance: no changes noted. Patient is aware of COVID-19 risks. Patient is asymptomatic for COVID-19. Patient has been tested for COVID-19 - [NEGATIVE]. Improved erythema with abx and elevation. Remains with septic effusion L IF PIPJ.
[2022-02-13 10:32] LABS: Estimated Average Glucose 286 mg/dl; Hemoglobin A1C 11.6 % (4.5-5.6)
[2022-02-13] MEDS ORDERED: BUPIVACAINE 0.5 % 5 MG/1 ML MPF 30ML VIAL ONE (11:05)
--- NOTE | 2022-02-13 11:15 | Pharmacy Report ---
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 Pertinent microbiologic data includes: blood cultures x 2 show no growth at 24 hours. I&D scheduled for today. Plan Vancomycin * Loading dose: 2250 mg IV x 1 * Maintenance dose: 1250 mg IV every 12 hours * Regimen is predicted to achieve target AUC/SARAH of 400-600 mg/L.hr * Will obtain vancomycin level if patient will remain on therapy beyond tomorrow Zosyn * 4.5 g IV q8h appropriate based on BMI and renal function Pharmacy will continue to follow and will adjust dose/frequency as necessary. Thank you. Pharmacy has transitioned to AUC monitoring for vancomycin. AUC/SARAH is the preferred PK/PD target and is associated with decreased risk of nephrotoxicity compared to traditional trough targets.
--- NOTE | 2022-02-13 12:03 | Operative Report ---
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 There was metallic debris and particulate matter down into the joint with extensive synovitis. Thorough sharp debridement was carried out and 3 L of high flow irrigation was performed, with an Angiocath used to get to the deep portions of the joint. Deep articular culture was taken. Specimens Swab culture Drains Single half Randy drain into the superficial wound bed. Anesthesia Type General Complications none Disposition Accompanied Patient To Recovery: No Disposition: Recovery Room Indications 56-year-old male who sustained a full-thickness wound to the dorsal radial aspect of his left index finger PIP joint about 3 weeks ago from a metallurgical specialist, presented with a septic arthrosis to the ED. He was admitted for prophylactic antibiotics. I recommended irrigation debridement due to the deep violation of his joint. We discussed the risks and benefits in detail, as outlined in my consult note. Informed consent was obtained. Description of Procedure On the day of surgery, the patient was greeted in the preoperative holding area. The informed consent was reviewed and confirmed by myself and the patient. The patient identified the surgical site and was marked by me. The patient was then turned over to anesthesia. He was taken to the operating room and transferred onto the OR table. A hand table was attached. Anesthesia was induced and the airway was secured. A nonsterile tourniquet is placed on the forearm. We began by using chlorhexidine scrub brushes to thoroughly clean the hand and distal forearm below the nonsterile tourniquet. There was significant mount of grime and dirt stuck to previous adhesive material in the index finger. This was all cleaned off. The hand was then prepped using Betadine paint and sterilely draped. Surgical timeout was called by the circulating nurse, and verified by all present. Antibiotics have been infused on schedule, and equipment is available and functional. We initiated the procedure by exsanguinating the distal extremities and Esmarch bandage, and the tourniquet was inflated to 250 mmHg for a total of 36 minutes. The traumatic incision was about 8 mm and it was extended on either side for a midaxillary approach on the radial side of the index finger. Subcutaneous dissection was carried out sharply. Minimal Bovie electrocautery was used for hemostasis. The traumatic tissue violation was explored. This tracked all the way to the joint. It was held open and a swab culture was taken deep into the joint recesses. The extensor العراقي violation was extended. There was significant amount of particulate metallic debris throughout the traumatic wound bed. There was extensive purulent looking synovitis in the in the dorsal joint capsule. This was all debrided sharply using knife, tenotomy scissors, curettes, and small rongeur. Once clean margins were established, we began thorough 3 L irrigation using cystoscopy tubing and a 14-gauge Angiocath to washout the recesses of the joint. Once a clean wound was established, I loosely reapproximated the joint capsule and extensor العراقي with 3 [id number] sutures using 40 antibacterial Monocryl suture. 4-0 nylon was used approximate the midportion of the wound. Half strip of [place] drain was laid through the wound bed subcutaneously for drainage. The remainder the wound was approximate using mattress sutures of 4-0 nylon. The wound was dressed with sterile Xeroform, sterile gauze around the [place] drain, and contained by sterile web roll. Dressing was contained by 1 inch Coban with mila taping to the long finger forced relative tissue mobilization. The patient tolerated the procedure well, was extubated in the operating without complication, and transferred to recovery area in stable condition. Disposition: The patient remain inpatient for least 24 hours of antibiotics. We will track the cultures, and transition to oral antibiotics with assistance with the hospitalist team. He will need to follow-up as an outpatient for suture removal in about 10 to 14 days. We will perform a wound check tomorrow and likely pull the Randy drain from the wound bed. I attest to the content of the Intraoperative Record and any orders documented therein. Any exceptions are noted below.
[2022-02-13] MEDS ORDERED: ONDANSETRON INJ 2 MG/ML 2 ML VIAL ONE (12:14)
[2022-02-13] MEDS ORDERED: PHENYLEPHRINE 100MCG/ML 5ML SYR ONE (12:15)
[2022-02-13] MEDS: amLODIPine BESYLATE 5 MG TAB PO SCH (13:01)
[2022-02-13] MEDS ORDERED: IBUPROFEN 600 MG TAB PO PRN (14:42)
[2022-02-13] MEDS ORDERED: HYDROmorphone INJ 0.5 MG/0.5 ML SYR IV PRN ×2 (14:42)
[2022-02-13] MEDS ORDERED: oxyCODONE HCL IR 5 MG TAB (IMMEDIATE RELEASE) PO PRN ×2 (14:42)
[2022-02-13] MEDS ORDERED: diphenhydrAMINE Capsule 25 MG CAP PO PRN (14:42)
[2022-02-13] MEDS ORDERED: NALOXONE HCL 0.4 MG/1 ML VIAL/CARP IV PRN (14:42)
--- NOTE | 2022-02-13 15:17 | Hospitalist Progress Note ---
Date of Service February 13, 2022 Assessment & Plan (1) Cellulitis of finger of left hand: Plan: per admitting service notes with addendum: LEFT INDEX FINGER Patient is 56-year-old male with PMH HTN, HLD, DM II presents to ER with complaint of left finger swelling, erythema and edema x 1 week. 3 weeks ago laceration from a sample tester grinder to dorsal aspect of L index finger over PIP joint. 1 week ago tried home aspiration with needle reporting purulent drainage since. Was in [place] ER yesterday and received Rocephin, Vancomycin and admission was recommended however patient denied Today in ER patient afebrile, patient hypertensive other vital stable. No leukocytosis. ESR: 28, CRP: 4.3, lactate and procalcitonin WNL Left hand x-ray: No visible foreign bodies, no osteomyelitis noted R/O tenosynovitis In ER given L NSS, Rocephin, vancomycin Blood cultures pending Zosyn, vancomycin Gentle IVF Tylenol, oxycodone as needed pain Ortho consult Will hold on further imaging pending ortho recommendations NPO midnight CBC, BMP in a.m. 02/14 stable overall afebrile awaiting surgery blood cultures: pending drainage culture: pending continue Vancomycin and Zosyn Day 2 (2) Hyperglycemia due to type 2 diabetes mellitus: Plan: In ER glucose 428 down to 317 UA pending Hold home glyburide. Patient reports was on metformin however after several days of taking developed arthralgias so was discontinued Basal bolus insulin per protocol Glycemic pharmacy consult A1c 11 will order glycemic control consulte DM educator ISS (3) Hypertension: Plan: Patient initially quite hypertensive in ER with BP 196/102 down to 154/89 Continue home lisinopril BP still elevated Added amlodipine 5mg po daily for better BP control Hydralazine p.o. as needed HTN Monitor (4) HLD (hyperlipidemia): Plan: Continue simvastatin DVT Prophylaxis SCDs plan of care discussed with patient in detail and at length all questions answered he is understanding, agreeable, comfortable with the plan of care Admission and Anticipated Discharge Date Admission Date: February 12, 2022 Subjective ff up for finger cellulitis, etc seen resting in bed, sitting up not in distress states he feels ok overall still has pain on the index finger no fever/chills, nausea/vomiting, chest pain, dyspnea, headache, etc no other symptoms awaiting surgery Review of Systems Review of Systems: all noted and negative except for above Physical Exam Physical Exam: General- oriented x 3, not in distress, speaks in sentences with no effort or accessory muscle use Head- atraumatic Eyes- PERRL, EOMI, anicteric ENT- oropharynx clear Neck- supple, no JVD, no adenopathy, no thyromegaly; carotids +2/2, no bruits appreciated Lungs- clear to auscultation bilaterally, no rales/wheezes Heart- normal rate, regular rhythm; no murmur, no gallop, no rub appreciated Abdomen- normal bowel sounds, nondistended, soft, nontender, no masses or hepatosplenomegaly Extremities- no pretibial edema, no calf tenderness; peripheral pulses intact L index finger: mild edema on the joint, no active drainage no hand edema no wrist edema, or forearm edema Neuro- alert, oriented x 3; CN 2-12 grossly intact; motor 5/5 bilaterally;sensation 100% on all extremities; no other gross focal neurologic deficits Skin- warm & dry Results & Data Results & Data ([facility]) Vital Signs (Past 12 Hours) Vital Signs Temp Pulse Pulse Resp BP Pulse Ox 02/13/22 13:01 36.4 C L 72 18 167/98 H 95 02/13/22 12:45 36.9 C 74 20 160/90 H 95 02/13/22 12:35 78 21 156/103 H 92 02/13/22 12:25 76 20 133/85 93 02/13/22 12:15 63 17 135/78 95 02/13/22 12:06 36.5 C 63 20 133/89 95 02/13/22 07:28 59 L 02/13/22 07:25 36.6 C 61 18 178/100 H 93 02/13/22 04:15 36.6 C 70 16 168/90 H 92 all noted and reviewed including below (1) Hyperglycemia due to type 2 diabetes mellitus Diabetes mellitus detention insulin use: without detention use Qualified Code(s): E11.65 - Type 2 diabetes mellitus with hyperglycemia
--- NOTE | 2022-02-13 17:27 | Anesthesiology Progress Note ---
Date of Service February 13, 2022 Anesthesia Post Procedure Vital Signs Vital Signs: Temp Pulse Pulse Resp BP Pulse Ox 02/13/22 15:33 36.3 C L 72 18 162/82 H 92 02/13/22 13:01 36.4 C L 72 18 167/98 H 95 02/13/22 12:45 36.9 C 74 20 160/90 H 95 02/13/22 12:35 78 21 156/103 H 92 02/13/22 12:25 76 20 133/85 93 02/13/22 12:15 63 17 135/78 95 02/13/22 12:06 36.5 C 63 20 133/89 95 02/13/22 07:28 59 L 02/13/22 07:25 36.6 C 61 18 178/100 H 93 02/13/22 04:15 36.6 C 70 16 168/90 H 92 02/13/22 00:15 37.0 C 79 16 165/97 H 93 02/12/22 22:29 78 02/12/22 21:15 36.9 C 78 18 179/102 H 97 02/12/22 21:13 80 Pain Intensity Left Hand: Pain Intensity: 5 Transfer of Care Handoff Completed per policy Notes Mental Status: alert / awake / arousable Patient Amnestic to Procedure: Yes Nausea / Vomiting: adequately controlled Pain: adequately controlled Airway Patency, RR, SpO2: stable & adequate BP & HR: stable & adequate Hydration State: stable & adequate Anesthetic Complications: no major complications apparent
[2022-02-13] MEDS: SIMVASTATIN 20 MG TAB PO SCH (20:06)
[2022-02-13] MEDS: ACETAMINOPHEN 325 MG TAB PO PRN (23:16)
[2022-02-14] MEDS: VANCOMYCIN HCL 1,250 MG in SODIUM CHLORIDE 0.9% 250 ML IV SCH ×2 (03:18→13:51)
[2022-02-14 07:19] LABS: Basophils # (auto) 0.03 K/uL (0-0.2); Basophils % (auto) 0.3 %; Eosinophils # (auto) 0.14 K/uL (0-0.5); Eosinophils % (auto) 1.5 %; Hematocrit (blood only) 43.5 % (42-52); Immature Granulocytes # (auto) 0.02 K/uL (0.00-0.02); Immature Granulocytes % (auto) 0.2 %; Lymphocytes # (auto) 1.91 K/uL (1.2-3.4); Lymphocytes % (auto) 20.7 %; Mean Corpuscular Hemoglobin 29.2 pg (25-34); Mean Corpuscular Hgb Conc 34.5 g/dL (32-36); Mean Corpuscular Volume 84.6 fL (80-100); Mean Platelet Volume 9.5 fL (7.4-10.4); Monocytes # (auto) 0.54 K/uL (0.11-0.59); Monocytes % (auto) 5.8 %; Neutrophils % (auto) 71.5 %; Platelet Count 176 K/uL (130-400); RDW Coefficient of Variation 12.7 % (11.5-14.5); RDW Standard Deviation 39.1 fL (36.4-46.3); Red Blood Count 5.14 M/uL (4.7-6.1); White Blood Count 9.24 K/uL (4.8-10.8)
[2022-02-14 07:53] LABS: BUN Creatinine Ratio 16.5 (10-20); Calcium 8.8 mg/dl (8.5-10.1); Est GFR (Non-African American) 80.3 ml/min; Potassium 4.2 mmol/L (3.5-5.1)
[2022-02-14] MEDS: MULTIVITAMIN TAB PO SCH (08:35)
[2022-02-14] MEDS: amLODIPine BESYLATE 5 MG TAB PO SCH (08:35)
[2022-02-14] MEDS: lisinopril 20 MG TAB PO SCH (08:35)
[2022-02-14] MEDS: PIPERACILLIN/TAZOBACTAM 4.5 GM in DEXTROSE 5% 100 ML IV SCH ×2 (08:36→16:19)
[2022-02-14] MEDS: INSULIN ASPART PER UNIT SC SCH ×4 (08:46→22:08)
[2022-02-14] MEDS: INSULIN GLARGINE SOLOSTAR 100 UNITS/ML 3 ML PEN SC SCH (08:46)
--- NOTE | 2022-02-14 09:27 | Hospitalist Progress Note ---
Date of Service February 14, 2022 Assessment & Plan (1) Cellulitis of finger of left hand: Plan: per admitting service notes with addendum: LEFT INDEX FINGER, septic arthritis, cellulitis Patient is 56-year-old male with PMH HTN, HLD, DM II presents to ER with complaint of left finger swelling, erythema and edema x 1 week. 3 weeks ago laceration from a precision lens grinder apprentice to dorsal aspect of L index finger over PIP joint. 1 week ago tried home aspiration with needle reporting purulent drainage since. Was in [place] ER yesterday and received Rocephin, Vancomycin and admission was recommended however patient denied Today in ER patient afebrile, patient hypertensive other vital stable. No leukocytosis. ESR: 28, CRP: 4.3, lactate and procalcitonin WNL Left hand x-ray: No visible foreign bodies, no osteomyelitis noted R/O tenosynovitis In ER given L NSS, Rocephin, vancomycin Blood cultures pending Zosyn, vancomycin Gentle IVF Tylenol, oxycodone as needed pain Ortho consult Will hold on further imaging pending ortho recommendations NPO midnight CBC, BMP in a.m. 02/14 stable overall afebrile Status post incision and drainage 02/[address] Modesto Lee blood cultures: pending drainage culture: pending continue Vancomycin and Zosyn Day 3 (2) Hyperglycemia due to type 2 diabetes mellitus: Plan: In ER glucose 428 down to 317 UA pending Hold home glyburide. Patient reports was on metformin however after several days of taking developed arthralgias so was discontinued Basal bolus insulin per protocol Glycemic pharmacy consult A1c 11 02/14 BSG 236 Insulin Lantus 50 units daily ordered Monitor BSG's (3) Hypertension: Plan: Patient initially quite hypertensive in ER with BP 196/102 down to 154/89 Continue home lisinopril BP still elevated Added amlodipine 5mg po daily for better BP control Hydralazine p.o. as needed HTN Monitor 02/14 blood pressure improving Monitor closely (4) HLD (hyperlipidemia): Plan: Continue simvastatin DVT Prophylaxis SCDs plan of care discussed with patient in detail and at length all questions answered he is understanding, agreeable, comfortable with the plan of care Admission and Anticipated Discharge Date Admission Date: February 12, 2022 Subjective Follow-up for left index finger septic arthritis PIP joint, cellulitis, etc. Seen resting in bed, comfortable, not in distress In good spirits States left hand/finger pain resolved Denies any pain today No fevers or chills No headache, chest pain, shortness of breath, palpitations, dizziness No other symptoms Review of Systems Review of Systems: all noted and negative except for above Physical Exam Physical Exam: General- oriented x 3, not in distress, speaks in sentences with no effort or accessory muscle use Eyes- anicteric Neck- no JVD Lungs- clear breath sounds bilaterally, no rales/wheezes Heart- normal rate, regular rhythm; no murmurs Abdomen- normal bowel sounds, nondistended, soft, nontender Extremities- no pretibial edema, no calf tenderness Neuro- alert, oriented x 3; no gross focal neurologic deficits Skin- warm & dry Results & Data Results & Data ([facility]) Vital Signs (Past 12 Hours) Vital Signs Temp Pulse Pulse Resp BP Pulse Ox 02/14/22 07:17 65 02/14/22 06:46 36.6 C 75 16 150/84 H 94 02/14/22 02:26 36.9 C 79 18 141/73 H 93 02/13/22 23:15 37 C 93 H 18 155/74 H 92 02/13/22 22:20 89 (1) Hyperglycemia due to type 2 diabetes mellitus Diabetes mellitus skilled nursing insulin use: without superintendent marine oil terminal use Qualified Code(s): E11.65 - Type 2 diabetes mellitus with hyperglycemia
--- NOTE | 2022-02-14 10:29 | Pharmacy Report ---
Pharmacy Glycemic Short Note 2 - Date of Service February 14, 2022 - Glycemic Short BSG Results (Last 24 hours): 02/13/22 02/13/22 02/13/22 12:09 16:31 20:29 Glucose POC Glucose 201 H 261 H 290 H 02/14/22 02/14/22 06:44 07:20 Glucose 228 H POC Glucose 236 H OUTPATIENT ANTIDIABETIC REGIMEN: * Glyburide 2.5mg PO daily * pt reports that he has been taking 5mg daily * HbA1c: 11.6% (02/13/22) ASSESSMENT: * Mr Lyndsay is a 56yo diabetic M admitted with L index finger cellulitis. * Pt's BSGs are uncontrolled at baseline (as indicated by A1c 11.6%). Pt does not have insurance, which limits outpt options. Also question pt compliance. * He was NPO yesterday for I&D of finger in OR. Diet was resumed post-op. * Pt was initiated on SQ basal/bolus insulin on admission. BSGs have been elevated thus far. * Aggressive increases in Lantus and Novolog today in an attempt to gain control over BSGs. Would like to see tight glycemic control in the setting of infection to promote wound healing and discourage worsening of infection. * Pt is receiving IV vancomycin and zosyn for SSTI. * Will continue to follow and adjust as indicated until BSGs are stable. PLAN FOR INPATIENT GLYCEMIC CONTROL: * Hold outpatient oral diabetes medications * Basal insulin * Lantus 50 units SQ daily * Bolus insulin * NovoLog per scale ACHS or Q6hrs while NPO * Goal Range: Low 120 mg/dL - High 160 mg/dL * Correction Factor: 12 mg/dL/unit * Nutritional / Prandial insulin per carb ratio of 1 unit per 4 grams CHO consumed
--- NOTE | 2022-02-14 12:17 | Orthopedic Progress Note ---
Date of Service February 14, 2022 Assessment & Plan (1) Septic arthritis of interphalangeal joint of finger of left hand: (2) Cellulitis of finger of left hand: Making good progress on postop day 1 from left index finger incision, irrigation and debridement. Obvious gross contamination and purulent synovitis within the PIP joint. -Continue empiric parenteral antibiotics and await for speciation on the culture. Gram stain with rare GPC's. -With targeted therapy from culture and 72 hours of parenteral therapy, is likely can convert to an oral agent as early as tomorrow for discharge. -Daily dressing change or as needed. The absorbent foam border dressing works well. -I instructed him that he can be range of motion as tolerated to the MP joint and do gentle assisted motion to the PIP joint, as tolerated. -Continue ice and elevation for pain control. -We will do another wound check tomorrow morning. Dispo: Ready for discharge as early as tomorrow if oral antibiotic can be established. Subjective Reports minimal pain, managed with Tylenol. No issues with IV antibiotics. Appetite okay. Review of Systems All systems reviewed & are unremarkable except as noted in HPI & below. Physical Exam Comfortable and cooperative. Dressing clean and dry Left hand: The dressing was taken down for exam. The wound is well approximated. I slipped out the Randy drain and had minimal sanguinous thick drainage. Guarded PIP joint motion, as expected. Actively ranges his MP joint. Site was dressed with absorbent foam dressing. Constitutional WD/WN, vitals as above no acute distress and not intoxicated appearing Respiratory normal respiratory effort; no labored breathing Cardiovascular Extremities: normal capillary refill Results & Data Results & Data Laboratory Results . H & H 02/12/22 02/13/22 02/14/22 Range/Units 10:05 09:15 06:44 Hgb 16.1 15.9 15.0 (14.0-18.0) g/dL Hct 44.7 45.2 43.5 (42-52) % Microbiology 02/12/22 10:10 Aerobic Blood Culture - Preliminary Blood No growth in Aerobic bottle after 48 hours. Anaerobic Blood Culture - Preliminary No growth in Anaerobic bottle after 48 hours. 02/12/22 10:05 Aerobic Blood Culture - Preliminary Blood No growth in Aerobic bottle after 48 hours. Anaerobic Blood Culture - Preliminary No growth in Anaerobic bottle after 48 hours. 02/13/22 11:15 Gram Stain - Final Finger,Left Index rare GPC's Diagnostic Findings PG Care Time/CCT Total # of Minutes Spent Total Time Spent with Patient: Total time spent is greater than 50% in coordination of care (as documented) at patient's floor/unit and/or counseling patient: Coding Level of Care Code 31312 Post Operative Follow-Up Diagnoses Septic arthritis of interphalangeal joint of finger of left hand M00.9 Cellulitis of finger of left hand L03.012
--- NOTE | 2022-02-14 13:28 | Electrocardiogram Report ---
Test Reason : Blood Pressure : / mmHG Vent. Rate : 070 BPM Atrial Rate : 070 BPM P-R Int : 168 ms QRS Dur : 102 ms QT Int : 394 ms P-R-T Axes : 044 018 -03 degrees QTc Int : 425 ms Normal sinus rhythm Normal ECG No previous ECGs available Confirmed by Fausto Wright ([id number]) on 02/14/2022 1:28:37 PM Referred By: REFERRED SELF Confirmed By:Fausto Wright
[2022-02-14] MEDS ORDERED: VANCOMYCIN TROUGH ONE (13:30)
--- NOTE | 2022-02-14 14:11 | Pharmacy Report ---
Pharmacy PK ABX Note - Date of Service February 14, 2022 - Assessment and Plan Assessment 56 year old M receiving empiric vancomycin and Zosyn for treatment of left index finger cellulitis/septic arthritis following trauma (laceration due to metal mold dresser). Pertinent microbiologic data includes: blood cultures x 2 show no growth at 48 hours. POD #1 left finger I&D. Plan Vancomycin * Vanco trough obtained at 1318 today resulted at 9.8 * Regimen is predicted to achieve target AUC/SARAH of 400-600 mg/L.hr, however will slightly increase dose today to 1500 mg IV q12h for increased probability of target achievement * Will obtain follow-up vanco level as needed Zosyn * 4.5 g IV q8h appropriate based on BMI and renal function Pharmacy will continue to follow and will adjust dose/frequency as necessary. Thank you. Pharmacy has transitioned to AUC monitoring for vancomycin. AUC/SARAH is the preferred PK/PD target and is associated with decreased risk of nephrotoxicity compared to traditional trough targets.
[2022-02-14] MEDS: ACETAMINOPHEN 325 MG TAB PO PRN (15:23)
[2022-02-14] MEDS ORDERED: VANCOMYCIN HCL 1,500 MG in SODIUM CHLORIDE 0.9% 500 ML IV SCH (22:00)
[2022-02-14] MEDS: SIMVASTATIN 20 MG TAB PO SCH (22:09)
[2022-02-15] MEDS: PIPERACILLIN/TAZOBACTAM 4.5 GM in DEXTROSE 5% 100 ML IV SCH (01:26)
[2022-02-15 05:41] LABS: Basophils # (auto) 0.04 K/uL (0-0.2); Basophils % (auto) 0.5 %; Eosinophils # (auto) 0.16 K/uL (0-0.5); Eosinophils % (auto) 1.9 %; Hematocrit (blood only) 45.3 % (42-52); Hemoglobin 15.9 g/dL (14.0-18.0); Immature Granulocytes # (auto) 0.03 K/uL (0.00-0.02); Immature Granulocytes % (auto) 0.4 %; Lymphocytes # (auto) 2.12 K/uL (1.2-3.4); Lymphocytes % (auto) 25.6 %; Mean Corpuscular Hemoglobin 29.3 pg (25-34); Mean Corpuscular Hgb Conc 35.1 g/dL (32-36); Mean Corpuscular Volume 83.4 fL (80-100); Mean Platelet Volume 9.3 fL (7.4-10.4); Monocytes # (auto) 0.55 K/uL (0.11-0.59); Monocytes % (auto) 6.6 %; Neutrophils # (auto) 5.38 K/uL (1.4-6.5); Platelet Count 184 K/uL (130-400); RDW Coefficient of Variation 12.6 % (11.5-14.5); RDW Standard Deviation 37.9 fL (36.4-46.3); Red Blood Count 5.43 M/uL (4.7-6.1); White Blood Count 8.28 K/uL (4.8-10.8)
[2022-02-15 06:05] LABS: BUN Creatinine Ratio 16.5 (10-20); Calcium 9.1 mg/dl (8.5-10.1); Est GFR (Non-African American) 80.3 ml/min; Potassium 3.8 mmol/L (3.5-5.1)
[2022-02-15] MEDS ORDERED: AMOXICILLIN/CLAVULANATE 875 MG TAB PO SCH (08:00)
[2022-02-15] MEDS: INSULIN GLARGINE SOLOSTAR 100 UNITS/ML 3 ML PEN SC SCH (08:18)
[2022-02-15] MEDS: INSULIN ASPART PER UNIT SC SCH ×2 (08:19→12:19)
[2022-02-15] MEDS: MULTIVITAMIN TAB PO SCH (08:22)
[2022-02-15] MEDS: amLODIPine BESYLATE 5 MG TAB PO SCH (08:22)
[2022-02-15] MEDS: lisinopril 20 MG TAB PO SCH (08:22)
[2022-02-15] MEDS ORDERED: ADVANCED PROBIOTIC 1250 MG CAPSULE PO SCH (09:00)
--- NOTE | 2022-02-15 11:49 | Hospitalist Progress Note ---
Date of Service February 15, 2022 Assessment & Plan (1) Cellulitis of finger of left hand: Plan: per admitting service notes with addendum: LEFT INDEX FINGER, septic arthritis, cellulitis Patient is 56-year-old male with PMH HTN, HLD, DM II presents to ER with complaint of left finger swelling, erythema and edema x 1 week. 3 weeks ago laceration from a beef grinder to dorsal aspect of L index finger over PIP joint. 1 week ago tried home aspiration with needle reporting purulent drainage since. Was in [place] ER yesterday and received Rocephin, Vancomycin and admission was recommended however patient denied 02/15 stable overall afebrile Status post incision and drainage 02/[address] Modesto Lee blood cultures: pending drainage culture: Group B strep sensitive to penicillin given Vancomycin and Zosyn x 3 day transition to Augmentin BID x 7 days ff up with Ortho in 1 week (2) Hyperglycemia due to type 2 diabetes mellitus: Plan: In ER glucose 428 down to 317 UA pending Hold home glyburide. Patient reports was on metformin however after several days of taking developed arthralgias so was discontinued Basal bolus insulin per protocol Glycemic pharmacy consult A1c 11 02/16 DM educator, Pharmacist consulted discharge plan: Tersiba U-200 30 units in AM continue Glyburide 5mg po daily scheduled to ff up with PCP this week, strongly advised patient to ff up closely with PCP (3) Hypertension: Plan: Patient initially quite hypertensive in ER with BP 196/102 down to 154/89 Continue home lisinopril BP still elevated Added amlodipine 5mg po daily for better BP control Hydralazine p.o. as needed HTN Monitor 02/14 blood pressure improving continue Amlodipine 5mg po daily at home continue home Lisinopril (4) HLD (hyperlipidemia): Plan: Continue simvastatin DVT Prophylaxis SCDs plan of care discussed with patient in detail and at length all questions answered he is understanding, agreeable, comfortable with the plan of care Admission and Anticipated Discharge Date Admission Date: February 12, 2022 Subjective ff up for L index finger cellulitis, septic arthritis, etc seen resting in bed, comfortable sitting up states he feels much better overall no pain on the L index finger, hand no chest pain, dyspnea, palpitations, dizziness no fever/chills no other symptoms Review of Systems Review of Systems: all noted and negative except for above Physical Exam Physical Exam: General- oriented x 3, not in distress, speaks in sentences with no effort or accessory muscle use Eyes- anicteric Neck- no JVD Lungs- clear BS bilaterally, no rales/wheezes Heart- normal rate, regular rhythm; no murmurs Abdomen- normal bowel sounds, nondistended, soft, nontender Extremities- no pretibial edema, no calf tenderness L index finger- no edema, erythema, discharge wound healing well, sutures intact Neuro- alert, oriented x 3; no gross focal neurologic deficits Skin- warm & dry Results & Data Results & Data ([facility]) Vital Signs (Past 12 Hours) Vital Signs Temp Pulse Pulse Resp BP Pulse Ox 02/15/22 09:00 77 02/15/22 07:19 36.8 C 76 18 169/91 H 91 02/15/22 03:56 37.1 C 75 20 153/84 H 93 all noted and reviewed including below (1) Hyperglycemia due to type 2 diabetes mellitus Diabetes mellitus senior living insulin use: without terminal press operator use Qualified Code(s): E11.65 - Type 2 diabetes mellitus with hyperglycemia
--- NOTE | 2022-02-15 13:24 | Orthopedic Progress Note ---
Date of Service February 15, 2022 Assessment & Plan (1) Septic arthritis of interphalangeal joint of finger of left hand: (2) Cellulitis of finger of left hand: Making good progress on postop day 2 from left index finger incision, irrigation and debridement. Obvious gross contamination and purulent synovitis within the PIP joint. Agree with antibiotic change today. Oral Augmentin should cover. We will follow final sensitivities. Reasonable to discharge today to outpatient care. Follow-up in my orthopedic clinic at 10-14 days. Our staff will reach out. Gentle range of motion as tolerated. Wound care per the discharge instructions. He states he has a follow-up with his primary care on February 19. This would be a good time to tighten up his glycemic management and hypertension control. Subjective Reports very little pain. Pleased with his progress. No intolerance to the IV antibiotics. Wants to go home Review of Systems All systems reviewed & are unremarkable except as noted in HPI & below. Physical Exam Left index finger: Wound remains well approximated. There is sanguinous drainage onto the foam border dressing from overnight Dressing was changed by me. He has about 10-15 degrees of motion at the PIP joint, limited more by stiffness than pain. MP joint motion is near full. Results & Data Results & Data Laboratory Results WBC has continued to be normal. Cultures show group B strep, sensitivities pending. Diagnostic Findings . PG Care Time/CCT Total # of Minutes Spent Total Time Spent with Patient: Total time spent is greater than 50% in coordination of care (as documented) at patient's floor/unit and/or counseling patient: Coding Level of Care Code 29705 Post Operative Follow-Up Diagnoses Septic arthritis of interphalangeal joint of finger of left hand M00.9 Cellulitis of finger of left hand L03.012
--- NOTE | 2022-02-16 17:28 | Discharge Summary ---
Date of Service February 16, 2022 Admission HPI Per Admitting Provider Patient is 56-year-old male with PMH HTN, HLD, DM II presents to ER with complaint of left finger swelling. He reports 3 weeks ago he cut his dorsal aspect of left index finger over PIP joint with a roll contour grinder causing laceration. He reports he cleansed the area with soap and water and then peroxide. He states that after injury we was able to flex and extend the digit. Reports approximately one week ago bumped finger and since has noted increased swelling and redness and discomfort. He states that stuck a needle into finger and yellow pus drained out. He reports continued yellow drainage from finger. Has been unable to fully flex the left index finger. Reports was seen at [place] [facility] yesterday. ER records reviewed and was given Rocephin and vancomycin. It was recommended he be admitted to hospital and see orthopedics however patient denied and presented here today. Denies known history of MRSA. Reports had AM meds today. Denies fever/chills, diaphoresis, N/V/D/C, PEREZ, dizziness, syncope, vision changes, neck pain, CP, SOB, orthopnea, palpitations, cough, sore throat, choking, otalgia, rhinorrhea, abdominal pain, paresthesias, weakness, extremity weakness, extremity edema, other skin rashes, urinary symptoms. Admission Exam Per Admitting Provider General: no distress, obese Head: normocephalic, atraumatic Eyes: conjunctiva non-injected, anicteric ENT: normal inspection external ears, nose, mucous membranes moist Neck: supple, trachea midline Lungs: clear, no respiratory distress, no wheezing/rhonchi/rales CV: RRR, no murmur, no pretibial edema Abd: normal BS, soft, non-tender Ext: no cyanosis, no calf tenderness; LUE: +splint to left wrist to fingers unable to fully examine Neuro: A&O x 3, no focal deficits noted, normal affect Skin: warm, dry Principal Diagnosis L INDEX FINGER CELLULITIS, SEPTIC ARTHRITIS Discharge Exam General- oriented x 3, not in distress, speaks in sentences with no effort or accessory muscle use Eyes- anicteric Neck- no JVD Lungs- clear BS bilaterally, no rales/wheezes Heart- normal rate, regular rhythm; no murmurs Abdomen- normal bowel sounds, nondistended, soft, nontender Extremities- no pretibial edema, no calf tenderness L index finger- no edema, erythema, discharge wound healing well, sutures intact Neuro- alert, oriented x 3; no gross focal neurologic deficits Skin- warm & dry Discharge Data Allergies Allergy/AdvReac Type Severity Reaction Status Date / Time No Known Allergies Allergy Unverified 02/12/22 11:04 Procedures Performed Operation Date: 02/13/22 10:30 Actual Procedures p Irrigation and Debridement of Left Index Finger(Left) - Modesto Herman MD Diabetes Follow up Diabetes Follow-up Needed for HgbA1c >9% Hospital Course (1) Cellulitis of finger of left hand: per admitting service notes with addendum: LEFT INDEX FINGER, septic arthritis, cellulitis Patient is 56-year-old male with PMH HTN, HLD, DM II presents to ER with complaint of left finger swelling, erythema and edema x 1 week. 3 weeks ago laceration from a roll contour grinder to dorsal aspect of L index finger over PIP joint. 1 week ago tried home aspiration with needle reporting purulent drainage since. Was in [place] [facility] yesterday and received Rocephin, Vancomycin and admission was recommended however patient denied 02/16 stable overall afebrile Status post incision and drainage 02/[address] Modesto Lee blood cultures: pending- follow up drainage culture: Group B strep sensitive to penicillin given Vancomycin and Zosyn x 3 day transition to Augmentin BID x 7 days ff up with Ortho in 10-14 days wound care instructions given (2) Hyperglycemia due to type 2 diabetes mellitus: In ER glucose 428 down to 317 UA pending Hold home glyburide. Patient reports was on metformin however after several days of taking developed arthralgias so was discontinued Basal bolus insulin per protocol Glycemic pharmacy consult A1c 11 02/16 DM educator, Pharmacist consulted discharge plan: Tersiba U-200 30 units in AM continue Glyburide 5mg po daily scheduled to ff up with PCP this week, strongly advised patient to ff up closely with PCP (3) Hypertension: Patient initially quite hypertensive in ER with BP 196/102 down to 154/89 Continue home lisinopril BP still elevated Added amlodipine 5mg po daily for better BP control Hydralazine p.o. as needed HTN Monitor 02/14 blood pressure improving continue Amlodipine 5mg po daily at home continue home Lisinopril ff up with PCP this week (4) HLD (hyperlipidemia): Continue simvastatin DVT Prophylaxis SCDs plan of care discussed with patient in detail and at length all questions answered he is understanding, agreeable, comfortable with the plan of care Total Time Total Time Spent Total Time Spent (In Minutes): >30 minutes Discharge Plan Discharge Items Patient Disposition: Home - Self-Care Reason For Visit: FINGER CELLULITIS Discharge Diagnosis: Left index finger cellulitis and septic proximal interphalangeal joint Activity: Per Instructions section Bathing: Keep incision dry Non-emergency contact: Surgeon Call non-emergency contact if: your pain is not controlled and your temperature is above 101 Follow-up/Referrals: Modesto Herman MD [Surgeon] - (10-14 days for wound check and suture removal) Alvarez Gagnon MD [Primary Care Provider] - Diet: Carb Consistent or DM2 and Heart Healthy Addtl Attending Provider Instructions: Modesto Herman M.D. [facility] [address], [place] [address] UPPER EXTREMITY SURGERY INSTRUCTIONS WOUND CARE: Keep the incision area clean and dry. Do not get the sutures wet in the shower until five days after surgery and there is no active drainage at the finger for greater than 24 hours. Change the dressing at least once per day. Elevation is your best friend. Swelling is simply fluid. Elevation will allow the fluid to run down hill, reduce swelling, and decrease pain. Keep the index finger wrapped with its mila, the middle finger for relative soft tissue rest/splinting. You can move the finger as pain allows. WHEN TO CALL. If you develop any of the following symptoms, please contact the [facility] at [phone] or the Emergency room (after hours): Temperature greater than 101 taken twice, difficulty breathing, bleeding, fever and chills, increased pain unrelieved by pain meds, uncomfortable cast or splint, or any other concerns. Pending Studies at Discharge: Yes Studies:: wound culture final results Stand-Alone Forms: My [employer], Smoking Cessation Medications and DC Order Prescriptions: New acetaminophen 325 mg Tablet 650 mg PO Q4H PRN (Reason: fever or pain) Qty: 14 RF: 0 amlodipine [Norvasc] 5 mg Tablet 5 mg PO QAM 30 Days Qty: 30 RF: 1 amoxicillin 875 mg tablet 875 mg PO BID Qty: 13 RF: 0 Tresiba FlexTouch U-200 200 unit/mL (3 mL) insulin pen 30 unit subcut DAILY 30 Days Qty: 6 RF: 1 glyburide 5 mg tablet 5 mg PO DAILY Qty: 30 RF: 0 tramadol 50 mg tablet 50 mg PO Q6H PRN (Reason: severe pain) Qty: 10 RF: 0 Continued lisinopril 20 mg tablet 20 mg PO QAM RF: 0 simvastatin 20 mg tablet 20 mg PO HS RF: 0 Discontinued glyburide 2.5 mg tablet 2.5 mg PO QAM RF: 0 Advil PM 200-38 mg Tablet 2 cap PO HS PRN (Reason: Pain) RF: 0 Discharge Orders: Discharge Order (Routine); Ordered 02/15/22 Ordered By: Dax Canchola Admission Data Admit Date/Time: 02/12/22 13:37 Attending Provider: Dax Canchola Admit Provider: Casimiro Deng Primary Care Provider: Alvarez Gagnon Other Interventions: Discharge Summary Assessment (RN) Last Done: 02/15/22 12:04
== END 2022-02-15 13:55 | disposition home or self-care (01) | DRG 514 ==
LOC: ED 09:26 → SUATTDRO 13:37 → EDINP 13:37 → 2S 21:45 → 2N 02-13 13:07